=== PATIENT | male | born 1985 | race Caucasian/White ===

== ENCOUNTER 2020-03-27 22:24 | Emergency (ER) | payer OTHER, SELFPAY ==
[2020-03-27 22:31] VITALS: BP 136/92; PULSE 80; RESP 16; TEMP 36.8; O2SAT 97; BMI 29.5
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
[2020-03-27] MEDS: sodium chloride 0.9% 1,000 ML 999 ML IV (23:01)
[2020-03-27 23:04] LABS: Basophils % 0.3 %; Eosinophils % 0.3 %; Hematocrit 42.1 % (42.0-52.0); Hemoglobin 13.3 g/dL (11.7-16.6); Lymphocytes # 1.7 10^3/uL (0.8-4.8); Lymphocytes % 22.5 %; Mean Corpuscular HGB Conc 31.6 g/dL (30.0-36.0); Mean Corpuscular Hemoglobin 29.6 pg (28.0-34.0); Mean Corpuscular Volume 93.8 fL (80-94); Mean Platelet Volume 9.9 fL (7.4-10.4); Monocytes # 0.6 10^3/uL (0.2-0.9); Monocytes % 7.4 %; Neutrophils % 69.4 %; Nucleated Red Blood Cells % 0 %; Platelet Count 288 10^3/cmm (130-400); Red Blood Count 4.49 10^6/uL (4.1-5.3); Red Cell Distribution Width 11.9 % (12.1-15.1); White Blood Count 7.5 10^3/uL (4.0-10.0)
[2020-03-27 23:15] LABS: Add Urine Microscopic? YES; Bilirubin Urine Neg (Negative); Blood Urine 3+ (Negative); Glucose Urine UA Norm (Normal); Ketones Urine 1+ (Negative); Leukocyte Esterase Urine Negative (Negative); Nitrate Urine Negative (Negative); Protein Urine Neg (Negative); Specific Gravity, Urine 1.015 (1.005-1.030); Urine Appearance Clear (CLEAR); Urine Color Yellow (Yellow); Urobilinogen Urine Norm (Negative)
[2020-03-27] MEDS: iohexol 300 mg/mL 100 mL Btl IV (23:16)
[2020-03-27 23:17] LABS: Add Urine Culture? Yes; Bacteria Urine 1+ /hpf; Mucus Urine 3+ /hpf; WBC Urine 0-4 /hpf (0-5)
[2020-03-27 23:45] VITALS: BP 131/79; PULSE 76; RESP 16; O2SAT 99
[2020-03-27 23:46] LABS: Alanine Aminotransferase 22 U/L (0-41); Albumin Level 4.6 g/dL (3.5-5.2); Alkaline Phosphatase 111 IU/L (40-130); Anion Gap 12.8 (5-19); Aspartate Amino Transferase 27 U/L (0-40); Blood Urea Nitrogen 10 mg/dL (6-20); Calcium 9.3 mg/dL (8.5-10.5); Carbon Dioxide 28 mmol/L (22-29); Chloride 102 mmol/L (98-107); Globulin 3.4 g/dL (1.3-4.6); Glomerular Filtration Rate 108.8 mL/min (90-130); Glucose 112 mg/dL (65-115); Osmolality Calculated 288 mOsm/kg (285-295); Potassium 3.8 mmol/L (3.5-5.1); Sodium 139 mmol/L (136-145); Total Bilirubin 0.5 mg/dL (0.15-1.2)
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
[2020-03-28] MEDS: acetaminophen 500 mg Tablet 1000 MG PO (00:45)
[2020-03-28 00:52] VITALS: BP 144/78; PULSE 70; RESP 18; O2SAT 100
== END 2020-03-28 00:53 | disposition home or self-care (01) ==
PROVIDERS: Emergency Provider Emergency Medicine
DX: S27.321A Contusion of lung, unilateral, initial encounter (principal); V69.9XXA Occupant (driver) (passenger) of heavy transport vehicle injured in unspecified traffic accident, initial encounter
CPT/HCPCS: 12345; 70450; 71045; 71260; 73030; 73552; 74177; 80053; 81001; 85025; 87086; 96360; 99283; J7030; Q9967